=== PATIENT | male | born 1955 | race Caucasian/White ===

== ENCOUNTER → 2020-08-07 | Day surgery (SDC) | payer OTHER ==
[2020-08-07 12:24] VITALS: BP 166/93
== END | disposition home or self-care (01) ==
LOC: SURG 11:25
PROVIDERS: ATTEND Anesthesiology
DX: M47.816 Spondylosis without myelopathy or radiculopathy, lumbar region (principal); M19.90 Unspecified osteoarthritis, unspecified site; I10 Essential (primary) hypertension; G47.00 Insomnia, unspecified; Z79.899 Other long term (current) drug therapy; Z88.8 Allergy status to other drugs, medicaments and biological substances
CPT/HCPCS: 64493; 64494

== ENCOUNTER → 2020-09-04 | Day surgery (SDC) | payer OTHER ==
[~2020-09-04] MED LIST: BUPIVACAINE MPF 0.25% 10 ML VIAL. ONE; LIDOCAINE 1% PF 30 ML VIAL. ONE
[2020-09-04 14:45] VITALS: BP 157/89
== END | disposition home or self-care (01) ==
LOC: SURG 13:56
PROVIDERS: ATTEND Anesthesiology
DX: M47.816 Spondylosis without myelopathy or radiculopathy, lumbar region (principal); I10 Essential (primary) hypertension; G47.00 Insomnia, unspecified; M19.90 Unspecified osteoarthritis, unspecified site; Z88.8 Allergy status to other drugs, medicaments and biological substances; Z79.899 Other long term (current) drug therapy
CPT/HCPCS: 64493; 64494; J3490

== ENCOUNTER → 2020-10-16 | Day surgery (SDC) | payer OTHER ==
[~2020-10-16] MED LIST changes: +AMLO-187 PO; +BUPIVACAINE MPF 0.25% 10 ML VIAL. IJ ONE; +DEXAMETHASONE SOD PHOS 10 MG/ML VIAL. INT ART ONE; +DEXAMETHASONE SOD PHOS 10 MG/ML VIAL. ONE; +LIDOCAINE 1% PF 30 ML VIAL. INJ ONE; +MIDAZOLAM HCL PF 2 MG/2 ML VIAL. IVP ONE; +MIDAZOLAM HCL PF 2 MG/2 ML VIAL. ONE
[2020-10-16 10:38] VITALS: BP 151/89
== END | disposition home or self-care (01) ==
LOC: SURG 09:19
PROVIDERS: ATTEND Anesthesiology
DX: M47.816 Spondylosis without myelopathy or radiculopathy, lumbar region (principal); I10 Essential (primary) hypertension; M19.90 Unspecified osteoarthritis, unspecified site; G47.00 Insomnia, unspecified; Z88.8 Allergy status to other drugs, medicaments and biological substances; Z79.899 Other long term (current) drug therapy; Z72.89 Other problems related to lifestyle
CPT/HCPCS: 64635; 64636; 99152; 99153; J1100; J2250; J3010; J3490

== ENCOUNTER → 2020-11-13 | Day surgery (SDC) | payer OTHER ==
[~2020-11-13] MED LIST changes: -DEXAMETHASONE SOD PHOS 10 MG/ML VIAL. INT ART ONE; +DEXAMETHASONE SOD PHOS 10 MG/ML VIAL. IV ONE; +GABA-586 PO; +MELO15TA23 PO; +OMEP20CA16 PO; +TIZA4TAB2 PO; +ZOLP10TA PO
[2020-11-13 11:12] VITALS: BP 143/92
== END | disposition home or self-care (01) ==
LOC: SURG 09:08
PROVIDERS: ATTEND Anesthesiology
DX: M47.816 Spondylosis without myelopathy or radiculopathy, lumbar region (principal); I10 Essential (primary) hypertension; M19.90 Unspecified osteoarthritis, unspecified site; Z79.899 Other long term (current) drug therapy; Z88.8 Allergy status to other drugs, medicaments and biological substances; Z72.89 Other problems related to lifestyle
CPT/HCPCS: 64635; 64636; 99152; 99153; J1100; J2250; J3010; J3490